=== PATIENT | female | born 1980 | race Caucasian/White ===

== ENCOUNTER 2018-05-08 20:56 | Emergency (ER) | payer OTHER ==
[~2018-05-08] VITALS: Ht 157.5 cm; Wt 68.8 kg
[~2018-05-08 20:56] MED LIST: ABILIFY15 MG PO; ABILIFY20 MG PO; AMBIEN CR12.5 MG PO; HYDROCHLOROTHIA25 MG PO; LAMICTAL200 MG PO; MOTRIN800 MG PO; PEN-VEE K,VEET500 MG PO; ZESTRIL,PRINIVI40 MG PO
[2018-05-08] MEDS ORDERED: ZITHROMAX Z-PA250 MG PO (22:22)
[2018-05-08 22:40] VITALS: BP 176/100
== END 2018-05-08 22:40 | disposition home or self-care (01) ==
LOC: EME 20:56
DX: J02.9 Acute pharyngitis, unspecified (principal); I10 Essential (primary) hypertension; F31.9 Bipolar disorder, unspecified; F32.9 Major depressive disorder, single episode, unspecified; F17.200 Nicotine dependence, unspecified, uncomplicated
CPT/HCPCS: 87651 90; 99281; 99283; J1100; J1885